=== PATIENT | female | born 1990 | race African-American/Black ===

== ENCOUNTER 2017-08-13 08:14 | Emergency (ER) | payer OTHER ==
[~2017-08-13] VITALS: Ht 149.9 cm; Wt 50.8 kg
--- NOTE | 2017-08-13 09:17 | PHYS DOC ---
Past History Past Medical History: No Pertinent History Past Surgical History: No Surgical History Alcohol Use: None Drug Use: None Adult General Chief Complaint Chief Complaint: CONSTIPATION HPI HPI Patient is a 27 year old F who presents with constipation associated with mild generalized abdominal cramping. She states that her last bowel movement was 2 days ago and she typically has a bowel movement every day. She denies nausea or vomiting. She has been drinking fluids without issues. She has no other associated symptoms and no other exacerbating or alleviating factors. Review of Systems Review of Systems Constitutional: Denies fever or chills [] Eyes: Denies change in visual acuity, redness, or eye pain [] HENT: Denies nasal congestion or sore throat [] Respiratory: Denies cough or shortness of breath [] Cardiovascular: No additional information not addressed in HPI [] GI: Negative except history of present illness : Denies dysuria or hematuria [] Musculoskeletal: Denies back pain or joint pain [] Integument: Denies rash or skin lesions [] Neurologic: Denies headache, focal weakness or sensory changes [] Endocrine: Denies polyuria or polydipsia [] All other systems were reviewed and found to be within normal limits, except as documented in this note. Family History Family History No pertinent medical history was reported Current Medications Current Medications Current medications were reviewed Allergies Allergies Allergies Coded Allergies Type Severity Reaction Last Updated Verified No Known Drug Allergies 08/13/17 No Physical Exam Physical Exam Constitutional: Well developed, well nourished, no acute distress, non-toxic appearance. [] HENT: Normocephalic, atraumatic, Eyes: EOMI, conjunctiva normal, no discharge. [] Neck: Normal range of motion, no tenderness, supple, no stridor. [] Cardiovascular:Heart rate regular rhythm, no murmur [] Lungs & Thorax: Bilateral breath sounds clear to auscultation [] Abdomen: Bowel sounds normal, soft, no masses, no pulsatile masses. [] Mild generalized tenderness Skin: Warm, dry, no erythema, no rash. [] Back: No tenderness, no CVA tenderness. [] Extremities: No tenderness, no cyanosis, no clubbing, ROM intact, no edema. [] Neurologic: Alert and oriented X 3, normal motor function, normal sensory function, no focal deficits noted. [] Psychologic: Affect normal, judgement normal, mood normal. [] Current Patient Data Vital Signs Vital Signs Date Time Temp Pulse Resp B/P (MAP) Pulse Ox O2 Delivery O2 Flow Rate FiO2 08/13/17 08:25 98.7 107 16 98 Room Air Lab Results Laboratory Tests Test 08/13/17 08:44 POC Urine HCG, Qualitative hcg negative (Negative) EKG EKG [] Radiology/Procedures Radiology/Procedures [] Course & Med Decision Making Course & Med Decision Making Pertinent Labs and Imaging studies reviewed. (See chart for details) Labs and imaging were declined. Treatment in the emergency room was also declined at this time. She plans to use [id number] medications for further management and return to the emergency room if she develops new or worsening symptoms. Dragon Disclaimer Dragon Disclaimer This electronic medical record was generated, in whole or in part, using a voice recognition dictation system. Departure Departure: Impression: Primary Impression: Constipation Disposition: HOME, SELF-CARE Condition: STABLE Referrals: PCP,UNKNOWN (PCP) Patient Instructions: Constipation, Adult Additional Instructions: Dustin was seen in the emergency department for constipation. No emergency medical condition was found on history or physical exam. She was advised to use MiraLAX several times this morning followed by milk of magnesia if she has still not had a bowel movement. She is advised to return to the emergency room if she develops new or worsening symptoms. She was also advised follow-up with her primary care doctor as needed for further management. Problem Qualifiers Primary Impression: Constipation Constipation type: unspecified constipation type Qualified Codes: K59.00 - Constipation, unspecified CARLITO RAMOS MD Aug 13, 2017 09:17
[2017-08-13 09:25] VITALS: BP 125/75
== END 2017-08-13 09:26 | disposition home or self-care (01) ==
LOC: ER 08:14
DX: K59.00 Constipation, unspecified (principal); R10.84 Generalized abdominal pain
CPT/HCPCS: 81025; 99282